=== PATIENT | female | born 1970 | race Caucasian/White ===

== ENCOUNTER 2018-12-13 20:38 | Emergency (ER) | payer OTHER ==
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
[2018-12-13 22:17] VITALS: BP 125/70
== END 2018-12-13 22:16 | disposition home or self-care (01) ==
LOC: ED 20:38
DX: S09.90XA Unspecified injury of head, initial encounter (principal); T74.11XA Adult physical abuse, confirmed, initial encounter; Y04.2XXA Assault by strike against or bumped into by another person, initial encounter; Y07.499 Other family member, perpetrator of maltreatment and neglect
CPT/HCPCS: 99282